=== PATIENT | female | born 1955 | race Hispanic/Latino ===

== ENCOUNTER 2025-06-27 10:31 | Outpatient (CLI) | payer MEDICARE | END 2025-06-27 10:32 | disposition home or self-care (01) | LOC: CSHRAD 10:31 | PROVIDERS: ATTEND Family Medicine Sports Medicine | DX: M25.561 Pain in right knee (principal); M17.11 Unilateral primary osteoarthritis, right knee; M25.461 Effusion, right knee; M76.9 Unspecified enthesopathy, lower limb, excluding foot ==